=== PATIENT | female | born 1965 | race Caucasian/White ===

== ENCOUNTER → 2021-03-02 09:54 | Outpatient (CLI) | payer BC | END | disposition home or self-care (01) | LOC: D.LAB 09:54 | PROVIDERS: ATTEND Internal Medicine Pulmonary Disease | DX: J44.9 Chronic obstructive pulmonary disease, unspecified (principal) ==

== ENCOUNTER → 2021-03-07 08:55 | Outpatient (CLI) | payer BC | END | disposition home or self-care (01) | LOC: D.RT 12-08 10:00 | PROVIDERS: ATTEND Internal Medicine Pulmonary Disease | DX: J44.9 Chronic obstructive pulmonary disease, unspecified (principal) ==